=== PATIENT | male | born 1995 | race Caucasian/White ===

== ENCOUNTER 2021-01-17 14:08 | Emergency (ER) | payer OTHER ==
[2021-01-17 14:40] LABS: BILIRUBIN 2+ mg/dL (NEGATIVE); BLOOD NEGATIVE Ery/uL (NEGATIVE); CLARITY CLEAR (CLEAR); GLUCOSE (U) NORMAL (NORMAL); LEUKOCYTES NEGATIVE Leu/uL (NEGATIVE); NITRITE POSITIVE (NEGATIVE); PROTEIN 1+ mg/dL (NEGATIVE); SPECIFIC GRAVITY >=1.030 (1.001-1.030); pH 5.5 (5.0-9.0)
[2021-01-17 14:45] LABS: COLOR AMBER (YELLOW)
[2021-01-17 14:50] LABS: BACTERIA TRACE; URINARY RBC RARE
[2021-01-17 14:51] LABS: CALCIUM OXALATE CRYSTALS TRACE
[2021-01-17 15:02] LABS: BASOPHIL 0.6 % (0-2); EOSINOPHIL 2.8 % (0-5); HCT 46.1 % (42.0-52.0); LYMPHOCYTE 40.9 % (15-48); MCH 30.4 pg (25.0-31.0); MCHC 34.7 g/dL (32.0-36.0); MCV 87.5 fL (78.0-100.0); MONOCYTE 5.5 % (0-12); MPV 11.1 fL (6.0-9.5); NEUTROPHIL 49.8 % (41-80); NRBC 0; PLT 303 K/uL (150-400); RBC 5.27 M/uL (4.70-6.00); RDW 12.2 % (11.5-14.0); WBC 11.7 K/uL (4.0-10.5)
[2021-01-17 15:15] LABS: ALBUMIN 3.9 g/dL (3.4-5.0); BILIRUBIN - TOTAL 0.6 mg/dL (0.2-1.0); BUN/CREAT RATIO (CALC) 16.3 RATIO; CREATININE 0.86 mg/dL (0.67-1.17); GLOBULIN (CALCULATION) 3.7 g/dL; POTASSIUM 3.5 mmol/L (3.5-5.1); TOTAL PROTEIN 7.6 g/dL (6.4-8.2)
[2021-01-17] MEDS ORDERED: IMODIUM2 MG PO ×2 (18:50→19:04)
[2021-01-17] MEDS ORDERED: BENTYL10 MG PO ×2 (18:50→19:04)
[2021-01-17] MEDS ORDERED: ONDANSETRON ODT4 MG PO ×2 (18:50→19:04)
[2021-01-17] MEDS ORDERED: FLAGYL500 MG PO (18:50)
[2021-01-17] MEDS ORDERED: METRONIDAZOLE500 MG PO (19:04)
== END 2021-01-17 19:26 | disposition home or self-care (01) ==
LOC: FER 14:08
PROVIDERS: Emergency Medicine
DX: A08.4 Viral intestinal infection, unspecified (principal); J45.909 Unspecified asthma, uncomplicated; Z88.0 Allergy status to penicillin
CPT/HCPCS: 36415; 80053; 81001; 85025; 87088; 87339; 96372; J0500; J7030; Q9967